=== PATIENT | female | born 1955 | race Caucasian/White ===

== ENCOUNTER → 2019-06-24 10:45 | Outpatient (CLI) | payer OTHER, SELFPAY ==
--- NOTE | ~2019-06-24 | DEXA_ITS ---
Bone Density Report Name: Margarita Yo Age: 63 Sex: Female Ethnicity: White Date of : 1955 Indication: postmenopausal; screening for osteoporosis; height loss; prior fracture; Referring Provider: AN, KADIE Study: Bone densitometry was performed. Exam Date: June 24, 2019 Accession number: [id number] Bone Density: Region BMD T-score Z-score Classification AP Spine (L3, L4) 1.328 2.1 4.0 Normal Femoral Neck (Left) 1.008 1.4 3.0 Normal Total Hip (Left) 1.161 1.8 3.1 Normal Femoral Neck (Right) 0.968 1.1 2.6 Normal Total Hip (Right) 1.123 1.5 2.8 Normal Total Hip Mean 1.142 1.7 3.0 Normal World Health Organization criteria for BMD impression classify patients as: Normal (T-score at or above -1.0), Osteopenia (T-score between -1.0 and -2.5), or Osteoporosis (T-score at or below -2.5). 10-year Fracture Risk: FRAX not reported because: All T-scores for Spine Total, Hip Total, Femoral Neck at or above -1.0 Previous Exams: Region Exam Age BMD T-score BMD Change BMD Change Date g/cm2 vs Baseline vs Previous AP Spine(L3, L4) 06/24/2019 63 1.328 2.1 0.163* 0.071* 04/26/2014 58 1.258 1.4 0.093* 0.033* 12/26/2009 54 1.225 1.1 0.060* 0.060* 06/13/2005 49 1.165 0.6 Total Hip(Left) 06/24/2019 63 1.161 1.8 -0.033* -0.019 04/26/2014 58 1.180 1.9 -0.014 0.057* 12/26/2009 54 1.123 1.5 -0.072* -0.072* 06/13/2005 49 1.194 2.1 Total Hip(Right) 06/24/2019 63 1.123 1.5 -0.056* -0.040* 04/26/2014 58 1.163 1.8 -0.016 0.048* 12/26/2009 54 1.116 1.4 -0.063* -0.063* 06/13/2005 49 1.179 1.9 *Denotes significance at 95% confidence level, LSC for AP Spine = 0.022 g/cm2, LSC for Total Hip = 0.027 g/cm2 Clinical Information Provided by Patient: Has had a low trauma fracture Has 3 or more alcoholic drinks per day Has used the following medications: Vitamin D Patient maximum height was 66 Menopause Age: 52 No regular weight bearing exercise Does not regularly consume dairy products Drinks caffeinated beverages Onset of menses at age 12 Number of children 3 Missed period for more than 6 months in a row Impression: The patient has normal bone mass. The patient has risk factors, including: excessive alcohol use, previous fractur
--- NOTE | ~2019-06-24 | MM_ITS ---
EXAMINATION: MM scrn randell implant BI w jeffy HISTORY: Screening mammogram, family history of breast cancer in her mother. TECHNIQUE: Craniocaudal and mediolateral oblique 3-D tomosynthesis images with implant displacement a nd synthetic 2-D images were generated. Craniocaudal and mediolateral oblique views of the breasts wi thout implant displacement were obtained using full field digital mammography. CAD analysis was submi tted and interpreted. COMPARISON: 04/26/2014, 04/14/2013, 10/03/2011 BREAST PARENCHYMAL COMPOSITION: There are scattered areas of fibroglandular density. FINDINGS: There has been interval replacement of the ruptured breast implants. There is no evidence o f suspicious mass, calcification, or architectural distortion to suggest malignancy in either breast. There has been no suspicious interval change. IMPRESSION: 1. No mammographic evidence of malignancy. 2. Recommend routine screening mammography in one year. BI-RADS Category 1: Negative Reviewed, dictated and finalized at location A. ETICIAN/OWNER
== END ==
PROVIDERS: Visit Provider Nurse Practitioner
DX: Z12.31 Encounter for screening mammogram for malignant neoplasm of breast (principal); Z78.0 Asymptomatic menopausal state
CPT/HCPCS: 77063; 77067; 77080

== ENCOUNTER 2023-03-05 14:34 | Outpatient (CLI) | payer MEDICARE, SELFPAY ==
--- NOTE | ~2023-03-05 | US_ITS ---
EXAMINATION: US carotid duplex BI DATE: 03/05/2023 15:58 INDICATION: Bilateral carotid artery stenosis. TECHNIQUE: Grayscale, color Doppler, and pulsed Doppler images of the cervical carotid arteries were obtained. The degree of vessel stenosis is placed in one of the following categories: normal, <50%, 5 0-69%, >=70% but less than near-occlusion, near-occlusion, or total occlusion. Note that percent sten osis relative to normal distal artery lumen diameter is indirectly measured from velocity measurement s as described by Jose, et al. Radiology 2003; 229:340-346. COMPARISON: None. FINDINGS: RIGHT: The right common carotid artery (CCA) peak systolic velocity (PSV) is 83 cm/s. The right internal car otid artery (ICA) PSV is 67 cm/s. The right ICA end-diastolic velocity (EDV) is 19 cm/s. The right IC A/CCA PSV ratio is 0.8. Grayscale and color Doppler images yield an estimate of <50% diameter reducti on from plaque in the ICA. The external carotid artery (ECA) PSV is 75 cm/s. There is antegrade flow in the right vertebral artery. LEFT: The left CCA PSV is 86 cm/s. The left ICA PSV is 55 cm/s. The left ICA EDV is 17 cm/s. The left ICA/C CA PSV ratio is 0.6. Grayscale and color Doppler images yield an estimate of <50% diameter reduction from plaque in the ICA. The ECA PSV is 62 cm/s. There is antegrade flow in the left vertebral artery. IMPRESSION: 1. <50% stenosis in the right internal carotid artery. 2. <50% stenosis in the left internal carotid artery. Reviewed, dictated and finalized at location A.
--- NOTE | ~2023-03-05 | CT_ITS ---
EXAMINATION:CT lung screening DATE: 03/05/2023 15:10 INDICATION: Personal history of nicotine dependence. Current smoker with 28 pack year history. TECHNIQUE: Computed tomography (CT) of the chest was performed without intravenous contrast. Automate d exposure control and iterative reconstruction technique were employed. The dose-length product (DLP ) was 72.38 mGy-cm. COMPARISON: None. FINDINGS: There is mild scarring at the lung apices. There is mild emphysema. There is mild atelectas is on the right. There is a 3 mm nodule in left upper lobe. No pleural effusion. The heart size is no rmal. There are coronary artery calcifications. No pericardial effusion. There are bilateral breast i mplants. There is lumbar dextroscoliosis. There is severe cervical, thoracic, and lumbar spondylosis. IMPRESSION: 1. Lung-RADS category 2: Benign appearance or behavior. Continue annual screening with noncontrast lo w-dose chest CT in 12 months. Reviewed, dictated and finalized at location E. IMPRESSION: 1. Lung-RADS category 2: Benign appearance or behavior. Continue annual screeni ng with noncontrast low-dose chest CT in 12 months.
== END 2023-03-05 14:35 | disposition home or self-care (01) ==
PROVIDERS: PCP Physician Assistant; Visit Provider Physician Assistant
DX: I65.23 Occlusion and stenosis of bilateral carotid arteries (principal); F17.210 Nicotine dependence, cigarettes, uncomplicated
CPT/HCPCS: 71271; 93880

== ENCOUNTER 2023-03-06 01:33 | Day surgery (SDC) | payer MEDICARE, SELFPAY ==
[2023-02-22 10:53] VITALS: BMI 24.0
--- NOTE | 2023-03-05 16:44 | PM.HPGS ---
History of Present Illness History of Present Illness Consent: Risks, benefits, and alternatives have been discussed and questions answered. Patient agrees to proceed with procedure. Chief complaint: hx colon polyps, family hx colon ca Narrative: Margarita Yo is a 67 year old female Referred for colon cancer screening. She has family history of colon cancer, her brother and also she has had a polyp removed in the past about 8 years ago. Review of Systems Review of Systems: All systems reviewed & are unremarkable except as noted in HPI and below PMFSH Social History Social History Years smoked: 29 Smoking status: Current every day smoker Tobacco type: cigarettes Alcohol intake: current Drinks per week: 14 Substance use type: does not use Living arrangements: alone Meds Home Medications and Allergies Home Medications Medication Instructions Recorded Confirmed Type amlodipine 5 mg tablet 5 mg PO DAILY 02/22/23 02/22/23 History aspirin 81 mg tablet 81 mg PO DAILY 02/22/23 02/22/23 History biotin 1,000 mcg chewable tablet 1,000 mcg PO DAILY 02/22/23 02/22/23 History cholecalciferol (vit D3) 1,000 1 tablet PO DAILY 02/22/23 02/22/23 History unit-vitamin K2 (MK4) 100 mcg tablet (K2 Plus D3) lisinopril 20 1 tablet PO DAILY 02/22/23 02/22/23 History mg-hydrochlorothiazide 25 mg tablet Allergies Allergy/AdvReac Type Severity Reaction Status Date / Time No Known Allergies Allergy Mild Verified 03/06/23 09:39 Exam Const: General: alert Orientation/consciousness: patient oriented x3 Resp: Auscultation: clear to auscultation bilaterally Cardio: Rhythm: regular rhythm GI: GI Palp: Yes Soft to palpation and No Tenderness to palpation present (GI) Neuro: General: patient oriented x3 Assessment and Plan Assessment and plan (1) Colon cancer screening: Code(s): Z12.11 - Encounter for screening for malignant neoplasm of colon Status: Acute Assessment and Plan: Colonoscopy with possible biopsy or polypectomy or cautery or injection of substances.
[2023-03-06 09:41] VITALS: BP 154/65; PULSE 80; RESP 18; TEMP 36.4; O2SAT 100
[2023-03-06] MEDS: LACTATED RINGERS 1,000 ML 150 ML IV CONT (09:50)
--- NOTE | 2023-03-06 10:25 | WPDANESEPPF ---
Anes - Initial Pre Proc Eval Procedure: Operation Date: 03/06/23 11:00 Proposed Procedures p Colonoscopy - Benedict Myers MD Date/Time: 03/06/23 10:25 Surgeon: Benedict Myers MD Pre Op Diagnosis: hx colon polyps, family hx colon ca Patient Data Age: 67 Gender: F Height: 1.64 m Weight: 66.1 kg Last Vital Signs Temp 97.5 F L 03/06/23 09:41 Pulse 80 03/06/23 09:41 Resp 18 03/06/23 09:41 BP 154/65 H 03/06/23 09:41 Pulse Ox 100 03/06/23 09:41 O2 Del Method Room Air 03/06/23 09:41 Allergies Allergy/AdvReac Type Severity Reaction Status Date / Time No Known Allergies Allergy Mild Verified 03/06/23 09:39 Home Medications Medication Instructions Recorded Confirmed Type amlodipine 5 mg tablet 5 mg PO DAILY 02/22/23 02/22/23 History aspirin 81 mg tablet 81 mg PO DAILY 02/22/23 02/22/23 History biotin 1,000 mcg chewable tablet 1,000 mcg PO DAILY 02/22/23 02/22/23 History cholecalciferol (vit D3) 1,000 1 tablet PO DAILY 02/22/23 02/22/23 History unit-vitamin K2 (MK4) 100 mcg tablet (K2 Plus D3) lisinopril 20 1 tablet PO DAILY 02/22/23 02/22/23 History mg-hydrochlorothiazide 25 mg tablet Patient hx anesthesia problems: none Family hx anesthesia problems: none Results Review: All pre-operative results and documents have been reviewed as part of the pre-operative evaluation. [facility] Social History Social History Years smoked: 29 Smoking status: Current every day smoker Tobacco type: cigarettes Alcohol intake: current Drinks per week: 14 Substance use type: does not use Living arrangements: alone Anes - Eval Final PreProcedure Day of Procedure 03/06/23 10:25 Patient weight: normal Heart: regular rate and rhythm Lungs: clear to auscultation Airway: Mallampati scale class II Neurological: alert and oriented Last oral intake: >/= 8 hours ASA classification: II Emergent: no Anesthetic plan: proceed Anesthesia type and monitoring: general GIVS and standard monitoring Results Review: All pre-operative results and documents have been reviewed as part of the pre-operative evaluation. Informed Consent: The patient's anesthetic plan and its attendant risks and benefits were discussed with the patient/family/POA. Questions were solicited and answers provided to the satisfaction of the patient/family/POA.
[2023-03-06 10:47] VITALS: BP 150/80; PULSE 70; RESP 15; O2SAT 100
[2023-03-06 10:57] VITALS: BP 159/81; PULSE 68; RESP 16; O2SAT 100
[2023-03-06 11:07] VITALS: BP 183/88; PULSE 65; RESP 18; O2SAT 100
== END 2023-03-06 11:13 | disposition home or self-care (01) ==
PROVIDERS: PCP Physician Assistant; Visit Provider Internal Medicine Gastroenterology
PROC: 0DJD8ZZ Inspection of Lower Intestinal Tract, Via Natural or Artificial Opening Endoscopic (ICD-10-PCS; CPT 45378; principal; 2023-03-06 11:00)
DX: Z12.11 Encounter for screening for malignant neoplasm of colon (principal); D12.2 Benign neoplasm of ascending colon; K62.1 Rectal polyp; K57.30 Diverticulosis of large intestine without perforation or abscess without bleeding; Z80.0 Family history of malignant neoplasm of digestive organs; F17.210 Nicotine dependence, cigarettes, uncomplicated; Z79.82 Long term (current) use of aspirin
CPT/HCPCS: 45380; 45385; 88305; J2704; J7120

== ENCOUNTER → 2023-04-22 10:20 | Outpatient (CLI) | payer MEDICARE, SELFPAY ==
--- NOTE | ~2023-04-22 | MM_ITS ---
EXAMINATION: MM scrn randell implant BI w jeffy HISTORY: Screening mammogram, family history of breast cancer in her mother. TECHNIQUE: Craniocaudal and mediolateral oblique 3-D tomosynthesis images with implant displacement a nd synthetic 2-D images were generated. Craniocaudal and mediolateral oblique views of the breasts wi thout implant displacement were obtained using full field digital mammography. CAD analysis was submi tted and interpreted. COMPARISON: 06/24/2019, 04/26/2014, 04/14/2013 BREAST PARENCHYMAL COMPOSITION: There are scattered areas of fibroglandular density. FINDINGS: There is no evidence of suspicious mass, calcification, or architectural distortion to sugg est malignancy in either breast. There has been no suspicious interval change. IMPRESSION: 1. No mammographic evidence of malignancy. 2. Recommend routine screening mammography in one year. BI-RADS Category 1: Negative Reviewed, dictated and finalized at location A. INCLUSION TEACHER
== END ==
PROVIDERS: PCP Obstetrics & Gynecology Gynecology; Visit Provider Obstetrics & Gynecology Gynecology
DX: Z12.31 Encounter for screening mammogram for malignant neoplasm of breast (principal)
CPT/HCPCS: 77063; 77067

== ENCOUNTER 2024-10-27 11:40 | Outpatient (CLI) | payer MEDICARE, SELFPAY ==
--- NOTE | ~2024-10-27 | MM_ITS ---
EXAMINATION: MM scrn randell implant BI w jeffy HISTORY: Screening mammogram TECHNIQUE: Craniocaudal and mediolateral oblique 3-D tomosynthesis images with implant displacement a nd synthetic 2-D images were generated. Craniocaudal and mediolateral oblique views of the breasts wi thout implant displacement were obtained using full field digital mammography. CAD analysis was submi tted and interpreted. COMPARISON: Comparison to multiple prior studies sequentially, with oldest reviewed study dated 09/2019. BREAST PARENCHYMAL COMPOSITION: Not dense: There are scattered areas of fibroglandular density. FINDINGS: There is no evidence of suspicious mass, calcification, or architectural distortion to sugg est malignancy in either breast. There has been no suspicious interval change. IMPRESSION: 1. No mammographic evidence of malignancy. 2. Recommend routine screening mammography in one year. BI-RADS Category 1: Negative Reviewed, dictated and finalized at location B.
== END 2024-10-27 11:41 | disposition home or self-care (01) ==
LOC: MICIMG 11:43
PROVIDERS: PCP Obstetrics & Gynecology Gynecology; Visit Provider Physician Assistant
DX: Z12.31 Encounter for screening mammogram for malignant neoplasm of breast (principal)
CPT/HCPCS: 77063; 77067

== ENCOUNTER 2024-10-29 11:25 | Outpatient (CLI) | payer MEDICARE, SELFPAY ==
--- NOTE | ~2024-10-29 | US_ITS ---
US soft tissue UE LT 10/29/2024 11:46 Indication: Localized swelling. Palpable lump. Procedure: High-resolution Limited ultrasound of the left forearm Comparison: No prior studies for comparison. Findings: In the area of palpable concern there is an oval hypoechoic mass measuring 4 x 2.9 x 0.6 cm with internal vascularity. This corresponds to the area of palpable concern. Impression: 1: Oval parallel oriented hypoechoic soft tissue mass of the area of palpable concern in the left for earm measuring 4.1 x 2.9 x 0.6 cm. Findings suspicious for phlegmonous change secondary to infectious /inflammatory process. Posttraumatic hematoma is also a consideration. No discrete drainable fluid co llection to suggest abscess. Clinically correlate. Recommend follow-up ultrasound as clinically warra nted. Reviewed, dictated and finalized at location [] Impression: 1: Oval parallel oriented hypoechoic soft tissue mass of the area of palpable c oncern in the left forearm measuring 4.1 x 2.9 x 0.6 cm. Findings suspicious fo r phlegmonous change secondary to infectious/inflammatory process. Posttraumati c hematoma is also a consideration. No discrete drainable fluid collection to s uggest abscess. Clinically correlate. Recommend follow-up ultrasound as clinica lly warranted.
--- NOTE | ~2024-10-29 | MR_ITS ---
MRI of the lumbar spine Clinical History: Degenerative disc disease Technique: Axial T2-weighted images, and sagittal T1-weighted, T2-weighted, and T2 fat-sat images wer e acquired. Findings: No acute fracture identified. There is 3 mm retrolisthesis of L1 over L2. There is 5 mm ret rolisthesis of L2 over L3. There is 3 mm anterolisthesis of L3 over L4. There is severe type I Modic change about the L3-L4 disc space due to underlying degenerative disc disease. There is more mild typ e I Modic changes about the L1-L2 and L2-3 disc spaces. At L1-L2, there is severe degenerative disc narrowing. There is moderate to advanced facet arthropath y. No central canal stenosis. There is severe left neural foraminal narrowing and mild right neural f oraminal narrowing. At L2-L3, there is moderate to advanced degenerative joint. There is diffuse disc bulge with severe f acet arthropathy. No central canal stenosis. There is left lateral recess stenosis. There is severe b ilateral neural foraminal, right, left worse than right. At L3-L4, there is moderate degenerative disc narrowing. Diffuse disc bulge and severe facet arthropa thy result in severe spinal canal stenosis/thecal sac compression and severe bilateral neural foramin al narrowing. At L4-L5, there is severe degenerative disc narrowing. There is diffuse disc bulge with severe facet arthropathy. No central canal stenosis. There is severe right neural foraminal narrowing. There is mi nimal left neural foraminal narrowing. At L5-S1, there is advanced degenerative disc narrowing. There is diffuse disc bulge with moderate to advanced facet arthropathy. No central canal stenosis. There is severe right neural foraminal narrow ing. Left neural foramen preserved. Paravertebral soft tissues are unremarkable. Impression: Severe degenerative spondylosis throughout the lumbar spine, as detailed above, with multilevel spina l canal stenosis and multilevel severe neural foraminal narrowing. 3 mm retrolisthesis of L1 over L2. 5 mm retrolisthesis of L2 over L3. 3 mm anterolisthesis of L3 over L4. Reviewed, dictated and finalized at location M. Impression: Severe degenerative spondylosis throughout the lumbar spine, as detailed above, with multilevel spinal canal stenosis and multilevel severe neural foraminal n arrowing. 3 mm retrolisthesis of L1 over L2. 5 mm retrolisthesis of L2 over L3. 3 mm anterolisthesis of L3 over L4.
== END 2024-10-29 11:26 | disposition home or self-care (01) ==
LOC: MICIMG 11:28
PROVIDERS: PCP Physician Assistant; Visit Provider Physician Assistant
DX: R22.32 Localized swelling, mass and lump, left upper limb (principal); M51.369 Other intervertebral disc degeneration, lumbar region without mention of lumbar back pain or lower extremity pain; M47.896 Other spondylosis, lumbar region; M43.16 Spondylolisthesis, lumbar region
CPT/HCPCS: 72148; 76882

== ENCOUNTER 2024-12-09 14:53 | Outpatient (CLI) | payer MEDICARE, SELFPAY ==
--- NOTE | ~2024-12-09 | CT_ITS ---
EXAMINATION: CT thoracic spine wo con, CT lumbar spine wo con DATE: 12/09/2024 15:22 INDICATION: Scoliosis of thoracolumbar spine . TECHNIQUE: Computed tomography (CT) of the thoracic and lumbar spine was performed without intravenou s contrast. Automated exposure control and iterative reconstruction technique were employed. The dose -length product was 500.29 (accession [id number]), 431.37 (accession [id number]) mGy-cm. COMPARISON: MR L-spine 10/29/2024 FINDINGS: THORACIC SPINE: Vertebral body alignment intact. Compensatory curvature in the lower thoracic spine. Vertebral body h eights preserved. Multilevel moderate degenerative disc disease. Multilevel mild facet arthropathy. N o severe central canal or neural foraminal narrowing. No traumatic malalignment or fracture. Visualiz ed lung parenchyma is clear. Coronary artery, mitral, and aortic valve calcifications. Biapical pleur al scarring. Minimal dependent scar/atelectasis. LUMBAR SPINE: Moderate scoliosis. 5 nonrib-bearing lumbar-type vertebral bodies. Pedicles intact. 6 mm rightward la teral subluxation at L3-4. 2 mm retrolistheses at L1-2 and L2-3. 3 mm anterolisthesis at L3-4. Partia l sacralization on the right with pseudoarthrosis. Vertebral body heights preserved. Multilevel sever e degenerative disc disease. Severe right L4-5 and L5-1 neural foraminal narrowing. Severe left neura l foraminal narrowing L1-2, L2-3 and L3-4. Severe central canal narrowing at L3-4 secondary to degene rative changes and listheses. Facet arthropathy at all lumbar levels, severe at L3-4 through L5-S1. IMPRESSION: No acute fracture or traumatic malalignment detected in the thoracic or lumbar spine. Moderate lumbar scoliosis. Multilevel mild degenerative listheses. Multilevel severe degenerative disc disease and facet arthropathy. Severe central canal narrowing at L3-4. Severe right neural foraminal narrowing at L4-5 and L5-S1. Severe left neural foraminal narrowing at L1-2, L2-3 and L3-4 Reviewed, dictated and finalized at location K. IMPRESSION: No acute fracture or traumatic malalignment detected in the thoracic or lumbar spine. Moderate lumbar scoliosis. Multilevel mild degenerative listheses. Multilevel severe degenerative disc disease and facet arthropathy. Severe central canal narrowing at L3-4. Severe right neural foraminal narrowing at L4-5 and L5-S1. Severe left neural f oraminal narrowing at L1-2, L2-3 and L3-4
== END 2024-12-09 14:54 | disposition home or self-care (01) ==
PROVIDERS: PCP Physician Assistant; Visit Provider Physician Assistant
DX: M41.9 Scoliosis, unspecified (principal); M51.369 Other intervertebral disc degeneration, lumbar region without mention of lumbar back pain or lower extremity pain
CPT/HCPCS: 72128; 72131

== ENCOUNTER 2024-12-15 13:11 | Outpatient (CLI) | payer MEDICARE, SELFPAY ==
--- NOTE | ~2024-12-15 | DEXA_ITS ---
Bone Density Report Name: LATHA TIM Age: 69 Sex: Female Ethnicity: White Date of : 1955 Indication: postmenopausal; screening for osteoporosis; height loss; Referring Provider: TRENTON, RUFINO Study: Bone densitometry was performed. Exam Date: December 15, 2024 Accession number: [id number] Bone Density: Region BMD T-score Z-score Classification AP Spine(L1-L4) 1.362 2.9 5.0 Normal Femoral Neck (Left) 0.933 0.8 2.6 Normal Total Hip (Left) 1.097 1.3 2.8 Normal Femoral Neck (Right) 0.904 0.5 2.4 Normal Total Hip (Right) 1.067 1.0 2.6 Normal Total Hip Mean 1.082 1.2 2.7 Normal World Health Organization criteria for BMD impression classify patients as: Normal (T-score at or above -1.0), Osteopenia (T-score between -1.0 and -2.5), or Osteoporosis (T-score at or below -2.5). 10-year Fracture Risk: FRAX not reported because: All T-scores for Spine Total, Hip Total, Femoral Neck at or above -1.0 Previous Exams: -- Region Exam Age BMD T-score BMD Change BMD Change Date g/cm2 vs Baseline vs Previous -- AP Spine (L1-L4) 12/15/2024 69 1.362 2.9 15.1%* -2.1%* 04/26/2014 58 1.391 3.1 17.6%* 10.7%* 12/26/2009 54 1.257 1.9 6.2%* 6.2%* 06/13/2005 49 1.183 1.2 Total Hip(Left) 12/15/2024 69 1.097 1.3 -8.2%* -5.6%* 06/24/2019 63 1.161 1.8 -2.8%* -1.6% 04/26/2014 58 1.180 1.9 -1.2% 5.1%* 12/26/2009 54 1.123 1.5 -6.0%* -6.0%* 06/13/2005 49 1.194 2.1 Total Hip(Right) 12/15/2024 69 1.067 1.0 -9.5%* -5.0%* 06/24/2019 63 1.123 1.5 -4.7%* -3.4%* 04/26/2014 58 1.163 1.8 -1.4% 4.3%* 12/26/2009 54 1.116 1.4 -5.4%* -5.4%* 06/13/2005 49 1.179 1.9 -- *Denotes significance at 95% confidence level, LSC for AP Spine = 0.022 g/cm2, LSC for Total Hip = 0.027 g/cm2 Clinical Information Provided by Patient: Smokes Has used the following medications: Vitamin D Patient maximum height was 66 Menopause Age: 52 No regular weight bearing exercise Drinks caffeinated beverages Onset of menses at age 12 Number of children 3 Missed period for more than 6 months in a row Impression: The patient has normal bone mass. The patient has risk factors, including: smoking. The BMD for the AP Spine (L1-L4) decreased, changing by -2.1% since the last DXA exam. The BMD for the Total Hip(Left) decreased, changing by -5.6% since the last DXA exam. The BMD for the Total Hip(Right) decreased, changing by -5.0% since the last DXA exam. Discussion: LOW RISK OF FRACTURE; BONE DENSITY IS WELL ABOVE THE MINIMUM DESIRABLE LEVEL AND ABOVE AVERAGE FOR AGE AND SEX AT ALL SKELETAL SITES TESTED. This person's bone density is above expected limits for age and sex. This is rarely clinically significant, but should be pursued if there are significant musculoskeletal complaints. The patient should follow a healthful lifestyle (good nutrition with adequate calcium and vitamin D, and appropriate weight-bearing exercise). Follow-Up: Consider repeating this study in 3 to 4 years to reassess this patient's status, or sooner if there is some new clinical indication. Reported by: MAURILIO on 12/15/2024 1:36:00 PM. Reviewed, dictated and finalized at location A.
== END 2024-12-15 13:12 | disposition home or self-care (01) ==
LOC: MICIMG 13:15
PROVIDERS: PCP Physician Assistant; Visit Provider Physician Assistant
DX: Z78.0 Asymptomatic menopausal state (principal)
CPT/HCPCS: 77080

== ENCOUNTER 2025-05-17 11:23 | Outpatient (CLI) | payer MEDICARE, SELFPAY ==
--- NOTE | ~2025-05-17 | CT_ITS ---
CT lung screening INDICATION: Nicotine dependence COMPARISON: 03/05/2020. TECHNIQUE: CT examination of the entire thorax without contrast was performed using low dose technique. Thin section axial, sagittal and coronal images were included to increase sensitivity for small lung nodules. FINDINGS: PULMONARY NODULES: No suspicious noncalcified pulmonary nodule. OTHER PULMONARY FINDINGS: No significant nonnodular pleural or parenchymal abnormality is noted. No emphysematous changes are present. No pathologically enlarged lymph nodes are present. Normal heart size. There are coronary artery calcifications. UPPER ABDOMEN AND PERIPHERAL SOFT TISSUE: Limited views of the upper abdomen and peripheral soft tissue demonstrated no abnormalities. OSSEOUS STRUCTURES: Bone window shows no aggressive blastic or lytic lesions. IMPRESSION: 1. Lung-RADS category 1: No nodules or definitely benign nodules. Recommendations: 1 or 2: Annual screening with low-dose CT in 12 months. 2. No emphysematous changes are present. All CT scans at this facility are performed using low dose modulation techniques as appropriate to perform exam including the following: automated exposure control; use of iterative reconstruction technique; adjustment of the mA and/or kV according to patient size (this includes techniques or standardized protocols for targeted exams where dose is matched to indication/reason for exam). Reviewed, dictated and finalized at location S. PROGRAMMER ANALYST IMPRESSION: 1. Lung-RADS category 1: No nodules or definitely benign nodules. Recommendations: 1 or 2: Annual screening with low-dose CT in 12 months. 2. No emphysematous changes are present. All CT scans at this facility are performed using low dose modulation techniqu es as appropriate to perform exam including the following: automated exposure c ontrol; use of iterative reconstruction technique; adjustment of the mA and/or kV according to patient size (this includes techniques or standardized protocol s for targeted exams where dose is matched to indication/reason for exam).
== END 2025-05-17 11:24 | disposition home or self-care (01) ==
LOC: MICIMG 11:24
PROVIDERS: PCP Physician Assistant; Visit Provider Physician Assistant
DX: Z12.2 Encounter for screening for malignant neoplasm of respiratory organs (principal); Z87.891 Personal history of nicotine dependence
CPT/HCPCS: 71271